=== PATIENT | female | born 1985 | race Two or more races ===

== ENCOUNTER 2024-05-15 09:54 | Emergency (ER) | payer OTHER ==
[~2024-05-15] VITALS: Ht 170.2 cm; Wt 61.2 kg
[2024-05-15] MEDS ORDERED: KETOROLAC TROMETHAMINE 30 MG VIAL IM STA (10:42)
[2024-05-15] MEDS ORDERED: KETOROLAC TROMETHAMINE 30 MG VIAL ONE (10:52)
== END 2024-05-15 12:47 | disposition home or self-care (01) ==
LOC: ER 09:57
DX: M25.562 Pain in left knee (principal); M25.561 Pain in right knee

== ENCOUNTER 2024-05-17 08:40 | Outpatient (CLI) | payer OTHER | END 2024-05-17 09:00 | disposition home or self-care (01) | LOC: MRI 08:40 | DX: M25.561 Pain in right knee (principal) | CPT/HCPCS: 73721 ==